=== PATIENT | female | born 1970 | race Hispanic/Latino ===

== ENCOUNTER 2018-10-25 10:48 | Outpatient (CLI) | payer BC | END 2018-10-25 10:49 | disposition home or self-care (01) | LOC: BICMAMMO 10:48 | PROVIDERS: ATTEND Obstetrics & Gynecology | DX: Z12.31 Encounter for screening mammogram for malignant neoplasm of breast (principal) | CPT/HCPCS: 77063; 77067 ==

== ENCOUNTER 2019-11-30 13:42 | Outpatient (CLI) | payer BC ==
--- NOTE | 2019-11-30 15:51 | ULT ---
LIMITED RIGHT BREAST ULTRASOUND: DATE: 11/30/2019. PROVIDED CLINICAL HISTORY: Abnormal screening mammogram. FINDINGS: Correlation is made with the screening mammogram performed 10/12/2019. Limited sonographic interroga tion at the outer right breast in the region of mammographic concern was performed. At the 10 o'cloc k position, there is a 1.3 cm circumscribed hypoechoic mass with central increased echogenicity and h aving a somewhat reniform shape suggestive of an intramammary lymph node. There is an adjacent circu mscribed hypoechoic mass measuring about 7 mm which also probably demonstrates a hilum, but this is l ess certain. No shadowing irregularity of other concerning findings. IMPRESSION: BIRADS category 3 - probably benign findings. Six-month followup ultrasound and diagnostic mammogram are recommended. Results and recommendations discussed with the patient, who voiced understanding. CODE CR POS: OFF
== END 2019-11-30 13:43 | disposition home or self-care (01) ==
LOC: BICMAMMO 13:42
PROVIDERS: ATTEND Obstetrics & Gynecology
DX: N63.11 Unspecified lump in the right breast, upper outer quadrant (principal)

== ENCOUNTER → 2020-11-27 | Day surgery (SDC) | payer BC | LOC: BICULT 15:48 | PROVIDERS: ATTEND Physician Assistant | DX: N63.11 Unspecified lump in the right breast, upper outer quadrant (principal) ==

== ENCOUNTER 2021-12-21 14:52 | Outpatient (CLI) | payer BC | END 2021-12-21 14:53 | disposition home or self-care (01) | LOC: BICMAMMO 14:52 | PROVIDERS: ATTEND Physician Assistant | DX: R92.8 Other abnormal and inconclusive findings on diagnostic imaging of breast (principal) | CPT/HCPCS: 77066; G0279 ==